=== PATIENT | male | born 1945 | race Caucasian/White ===

== ENCOUNTER 2021-02-24 23:16 | Inpatient (IN) ==
[2021-02-25] MEDS ORDERED: DEXTROSE 50% 25 GM/50 ML SYRINGE IV PRN (01:37)
[2021-02-25] MEDS ORDERED: GLUCAGON 1 MG VIAL IM PRN (01:37)
[2021-02-25] MEDS ORDERED: MAGNESIUM SULF RIDER 4 GM/100 ML PREMIX IV PRN (01:42)
[2021-02-25] MEDS ORDERED: MAGNESIUM SULF RIDER 2 GM/50 ML PREMIX IV PRN (01:42)
[2021-02-25] MEDS ORDERED: ACETAMINOPHEN 325 MG TABLET PO PRN (01:43)
[2021-02-25] MEDS ORDERED: MORPHINE 2 MG/1 ML SYRINGE IV PRN (01:43)
[2021-02-25] MEDS ORDERED: hydrALAZINE 20 MG/1 ML VIAL IV PRN (01:43)
[2021-02-25] MEDS ORDERED: ONDANSETRON 4 MG/2 ML VIAL IV PRN (01:43)
[2021-02-25] MEDS ORDERED: POTASSIUM CHLORIDE 20 MEQ TABLET PO PRN (01:47)
[2021-02-25] MEDS ORDERED: POTASSIUM CHLORIDE RIDER 10 MEQ/100 ML PREMIX IV PRN (01:47)
[2021-02-25 02:17] LABS: Basophils % 0.3 % (0.0-0.8); Hematocrit 43.9 VOL% (42.0-52.0); Hemoglobin 14.4 GM/DL (14.0-18.0); Immature Granulocytes % 0.6 %; Immature Granulocytes Absolute 0.05 #; Lymphocytes # 1.2 10*3/uL (1.4-4.0); Lymphocytes % 13.5 % (21.2-54.2); Mean Corpuscular HGB Conc 32.8 GM/DL (32-36); Mean Corpuscular Volume 92.8 FL (87-102); Monocytes % 5.5 % (1.7-12.7); Neutrophils % 80.1 % (38.7-73.9); Platelet Count 158 T/CUMM (130-400); Red Blood Count 4.73 MC/CUMM (3.8-5.5); Red Cell Distribution Width 14.6 % (9.3-17.3); White Blood Count 8.9 T/CUMM (4-12)
[2021-02-25 02:41] LABS: Risk Ratio 3.92; VLDL Cholesterol 19.4 MG/DL
[2021-02-25 02:45] LABS: Alanine Aminotransferase 13 U/L (16-61); Albumin 3.3 G/DL (3.4-5.0); Alkaline Phosphatase 106 U/L (45-117); Aspartate Amino Transferase 22 U/L (0-37); Bilirubin,Total < 0.39 MG/DL (0.20-1.00); Blood Urea Nitrogen 27 MG/DL (7-18); Calcium 8.9 MG/DL (8.5-10.1); Carbon Dioxide 30 MMOL/L (21-32); Estimated Glom Filtration Rate 43 ML/MIN; Glucose 191 MG/DL (74-106); Osmolality,Calculated 282.8 MOS/KG (273-304); Potassium 4.2 MMOL/L (3.5-5.1); Sodium 137 MMOL/L (136-145); Thyroid Stimulating Hormone 0.659 uIU/ml (0.358-3.74); Total Protein 6.4 G/DL (6.4-8.2)
[2021-02-25] MEDS ORDERED: ASPIRIN 325 MG TABLET PO ONE ×2 (02:51→03:30)
[2021-02-25] MEDS ORDERED: ASPIRIN CHEW 81 MG TABLET PO ONE (03:22)
[2021-02-25] MEDS ORDERED: ASPIRIN 325 MG TABLET ONE (03:30)
[2021-02-25] MEDS: ENOXAPARIN 60 MG/0.6 ML SYRINGE SUBCUT SCH ×2 (03:44→16:39)
[2021-02-25] MEDS ORDERED: FUROSEMIDE 40 MG/4 ML VIAL IV SCH (03:51)
[2021-02-25 05:36] LABS: PT Patient Result 11.6 SECS (10.5-12.0); Partial Thromboplastin Time 32.1 SECS (23.8-32.1)
[2021-02-25] MEDS: INSULIN REGULAR 100 UNIT/ML SUBCUT SCH ×4 (08:49→22:27)
[2021-02-25] MEDS ORDERED: NITROGLYCERIN SL 0.4 MG TABLET SL PRN (09:22)
[2021-02-25] MEDS ORDERED: GABAPENTIN 100 MG CAPSULE PO PRN (09:22)
[2021-02-25] MEDS: DOCUSATE SODIUM 100 MG CAPSULE PO SCH ×2 (09:32→22:21)
[2021-02-25] MEDS: PANTOPRAZOLE 40 MG TABLET PO SCH (09:32)
[2021-02-25] MEDS: FUROSEMIDE 40 MG/4 ML VIAL IV SCH (09:34)
[2021-02-25] MEDS: carvediloL 12.5 MG TABLET PO SCH ×2 (09:38→22:21)
[2021-02-25] MEDS: ISOSORBIDE MONONITRATE 20 MG TABLET PO SCH ×2 (09:38→22:21)
[2021-02-25] MEDS: ROSUVASTATIN 20 MG TABLET PO SCH (22:21)
[2021-02-25] MEDS: traMADol 50 MG TABLET PO SCH (22:21)
[2021-02-25] MEDS: traZODone 50 MG TABLET PO SCH (22:26)
[2021-02-26 05:30] LABS: Basophils # 0.1 10*3/uL (0.0-0.2); Basophils % 1.1 % (0.0-0.8); Eosinophils # 0.3 10*3/uL (0.0-0.87); Eosinophils % 2.9 % (0.00-10.9); Hematocrit 45.8 VOL% (42.0-52.0); Hemoglobin 14.9 GM/DL (14.0-18.0); Immature Granulocytes % 0.4 %; Immature Granulocytes Absolute 0.04 #; Lymphocytes # 2.4 10*3/uL (1.4-4.0); Lymphocytes % 26.1 % (21.2-54.2); Mean Corpuscular HGB Conc 32.5 GM/DL (32-36); Mean Platelet Volume 11.1 FL (9.6-12.0); Monocytes % 8.2 % (1.7-12.7); Neutrophils % 61.3 % (38.7-73.9); Platelet Count 166 T/CUMM (130-400); Red Blood Count 4.87 MC/CUMM (3.8-5.5); Red Cell Distribution Width 14.6 % (9.3-17.3)
[2021-02-26 05:41] LABS: Calcium 9.1 MG/DL (8.5-10.1); Osmolality,Calculated 280.7 MOS/KG (273-304); Potassium 4.1 MMOL/L (3.5-5.1)
[2021-02-26] MEDS: ENOXAPARIN 60 MG/0.6 ML SYRINGE SUBCUT SCH ×2 (06:23→16:04)
[2021-02-26] MEDS: INSULIN REGULAR 100 UNIT/ML SUBCUT SCH ×4 (07:59→21:44)
[2021-02-26] MEDS: FUROSEMIDE 40 MG/4 ML VIAL IV SCH (09:21)
[2021-02-26] MEDS: ISOSORBIDE MONONITRATE 20 MG TABLET PO SCH ×2 (09:21→21:39)
[2021-02-26] MEDS: PANTOPRAZOLE 40 MG TABLET PO SCH (09:21)
[2021-02-26] MEDS: DOCUSATE SODIUM 100 MG CAPSULE PO SCH ×2 (09:21→21:44)
[2021-02-26] MEDS: ASPIRIN EC 325 MG TABLET PO SCH (09:21)
[2021-02-26] MEDS: carvediloL 12.5 MG TABLET PO SCH ×2 (09:21→21:39)
[2021-02-26] MEDS: traMADol 50 MG TABLET PO SCH ×2 (09:21→21:39)
[2021-02-26] MEDS ORDERED: HEPARIN/NACL 0.9% 2 UNITS/ML 2,000 UNIT/1,000 ML BAG IV ONE (11:08)
[2021-02-26] MEDS ORDERED: LIDOCAINE 1% 20 ML VIAL ONE (11:08)
[2021-02-26] MEDS ORDERED: DIAZEPAM 5 MG TABLET PO ONE (13:00)
[2021-02-26] MEDS ORDERED: diphenhydrAMINE CAP 25 MG CAPSULE PO ONE (13:00)
[2021-02-26] MEDS ORDERED: MIDAZOLAM 2 MG/2 ML VIAL ONE (13:54)
[2021-02-26] MEDS ORDERED: HYDROmorphone 2 MG/1 ML VIAL ONE (13:55)
[2021-02-26] MEDS ORDERED: diphenhydrAMINE 50 MG/1 ML VIAL ONE (14:14)
[2021-02-26] MEDS ORDERED: NALOXONE 0.4 MG/ML VIAL ONE (14:36)
[2021-02-26] MEDS: traZODone 50 MG TABLET PO SCH (21:38)
[2021-02-26] MEDS: ROSUVASTATIN 20 MG TABLET PO SCH (21:39)
[2021-02-27] MEDS: ENOXAPARIN 60 MG/0.6 ML SYRINGE SUBCUT SCH (03:45)
[2021-02-27 05:42] LABS: Basophils # 0.1 10*3/uL (0.0-0.2); Basophils % 0.6 % (0.0-0.8); Eosinophils % 0.2 % (0.00-10.9); Hematocrit 48.7 VOL% (42.0-52.0); Hemoglobin 16.2 GM/DL (14.0-18.0); Immature Granulocytes % 0.6 %; Immature Granulocytes Absolute 0.08 #; Mean Corpuscular HGB Conc 33.3 GM/DL (32-36); Mean Corpuscular Volume 93.3 FL (87-102); Mean Platelet Volume 11.4 FL (9.6-12.0); Monocytes % 8.4 % (1.7-12.7); Neutrophils % 83.2 % (38.7-73.9); Platelet Count 185 T/CUMM (130-400); Red Blood Count 5.22 MC/CUMM (3.8-5.5); Red Cell Distribution Width 14.5 % (9.3-17.3); White Blood Count 14.4 T/CUMM (4-12)
[2021-02-27 05:54] LABS: Calcium 8.8 MG/DL (8.5-10.1); Calcium 9.1 MG/DL (8.5-10.1); Osmolality,Calculated 279.2 MOS/KG (273-304); Osmolality,Calculated 281.1 MOS/KG (273-304); Potassium 4.1 MMOL/L (3.5-5.1)
[2021-02-27] MEDS: ISOSORBIDE MONONITRATE 20 MG TABLET PO SCH (09:47)
[2021-02-27] MEDS: ASPIRIN EC 325 MG TABLET PO SCH (09:47)
[2021-02-27] MEDS: carvediloL 12.5 MG TABLET PO SCH (09:47)
[2021-02-27] MEDS: PANTOPRAZOLE 40 MG TABLET PO SCH (09:48)
[2021-02-27] MEDS: DOCUSATE SODIUM 100 MG CAPSULE PO SCH (09:48)
[2021-02-27] MEDS: traMADol 50 MG TABLET PO SCH (09:48)
[2021-02-27] MEDS: FUROSEMIDE 40 MG/4 ML VIAL IV SCH (09:48)
[2021-02-27] MEDS: INSULIN REGULAR 100 UNIT/ML SUBCUT SCH ×2 (10:45→11:25)
[2021-02-27 12:05] VITALS: BP 135/85
== END 2021-02-27 15:41 | disposition home health service (06) | DRG 281 ==
LOC: N.TELEN → SUATTDRO 02-25 00:34
PROVIDERS: ADMIT Internal Medicine; ATTEND Internal Medicine

== ENCOUNTER 2021-03-06 06:29 | Inpatient (IN) ==
[2021-03-06] MEDS ORDERED: ACETAMINOPHEN 325 MG TABLET PO PRN (09:11)
[2021-03-06] MEDS ORDERED: DEXTROSE 50% 25 GM/50 ML SYRINGE IV PRN (09:11)
[2021-03-06] MEDS ORDERED: ONDANSETRON 4 MG/2 ML VIAL IV PRN (09:11)
[2021-03-06] MEDS ORDERED: GLUCAGON 1 MG VIAL IM PRN (09:11)
[2021-03-06] MEDS: PANTOPRAZOLE 40 MG TABLET PO SCH (09:55)
[2021-03-06] MEDS ORDERED: NITROGLYCERIN SL 0.4 MG TABLET SL PRN (10:03)
[2021-03-06 10:04] LABS: Basophils % 0.2 % (0.0-0.8); Eosinophils % 0.1 % (0.00-10.9); Hematocrit 44.8 VOL% (42.0-52.0); Hemoglobin 14.6 GM/DL (14.0-18.0); Immature Granulocytes % 1.1 %; Immature Granulocytes Absolute 0.21 #; Lymphocytes # 1.2 10*3/uL (1.4-4.0); Lymphocytes % 6.4 % (21.2-54.2); Mean Corpuscular HGB Conc 32.6 GM/DL (32-36); Mean Corpuscular Volume 93.7 FL (87-102); Monocytes % 7.4 % (1.7-12.7); Neutrophils % 84.8 % (38.7-73.9); Platelet Count 262 T/CUMM (130-400); Red Blood Count 4.78 MC/CUMM (3.8-5.5); Red Cell Distribution Width 14.8 % (9.3-17.3); White Blood Count 19.2 T/CUMM (4-12)
[2021-03-06 10:31] LABS: Bilirubin,Total 0.6 MG/DL (0.20-1.00); Calcium 8.9 MG/DL (8.5-10.1); Osmolality,Calculated 288.7 MOS/KG (273-304); Potassium 4.5 MMOL/L (3.5-5.1); Thyroid Stimulating Hormone 2.17 uIU/ml (0.358-3.74); Total Protein 6.8 G/DL (6.4-8.2)
[2021-03-06] MEDS: ENOXAPARIN 60 MG/0.6 ML SYRINGE SUBCUT SCH (14:11)
[2021-03-06] MEDS ORDERED: LEVALBUTEROL 1.25 MG/3 ML NEB RESP TX ONE (15:20)
[2021-03-06] MEDS: carvediloL 12.5 MG TABLET PO SCH (21:09)
[2021-03-06] MEDS: ISOSORBIDE MONONITRATE 20 MG TABLET PO SCH (21:09)
[2021-03-06] MEDS: ASCORBIC ACID 500 MG TABLET PO SCH (21:09)
[2021-03-06] MEDS: ROSUVASTATIN 20 MG TABLET PO SCH (21:09)
[2021-03-07] MEDS: ENOXAPARIN 60 MG/0.6 ML SYRINGE SUBCUT SCH (01:41)
[2021-03-07 05:31] LABS: Risk Ratio 4.29; VLDL Cholesterol 18.2 MG/DL
[2021-03-07 09:07] LABS: Basophils % 0.1 % (0.0-0.8); Hematocrit 46.7 VOL% (42.0-52.0); Hemoglobin 15.4 GM/DL (14.0-18.0); Immature Granulocytes % 1.2 %; Immature Granulocytes Absolute 0.26 #; Lymphocytes % 4.5 % (21.2-54.2); Mean Corpuscular Volume 94.3 FL (87-102); Mean Platelet Volume 10.9 FL (9.6-12.0); Monocytes % 7.3 % (1.7-12.7); Neutrophils % 86.9 % (38.7-73.9); Platelet Count 346 T/CUMM (130-400); Red Blood Count 4.95 MC/CUMM (3.8-5.5); Red Cell Distribution Width 14.7 % (9.3-17.3); White Blood Count 21.8 T/CUMM (4-12)
[2021-03-07 09:20] LABS: Calcium 9.1 MG/DL (8.5-10.1); Osmolality,Calculated 280.2 MOS/KG (273-304); Potassium 4.5 MMOL/L (3.5-5.1)
[2021-03-07] MEDS: carvediloL 12.5 MG TABLET PO SCH ×2 (09:45→21:03)
[2021-03-07] MEDS: ASCORBIC ACID 500 MG TABLET PO SCH ×2 (09:45→21:03)
[2021-03-07] MEDS: ASPIRIN EC 325 MG TABLET PO SCH (09:45)
[2021-03-07] MEDS: ISOSORBIDE MONONITRATE 20 MG TABLET PO SCH ×2 (09:46→21:03)
[2021-03-07] MEDS: PANTOPRAZOLE 40 MG TABLET PO SCH (09:46)
[2021-03-07 09:55] LABS: Band Neutrophils 1 % (0-10); Hypochromia Slight; Lymphocytes 2 % (20-55); Microcytosis 1+; Segmented Neutrophils 94 % (50-85); Total Cells Counted 100
[2021-03-07] MEDS ORDERED: GABAPENTIN 100 MG CAPSULE PO PRN (11:26)
[2021-03-07] MEDS: FUROSEMIDE 40 MG TABLET PO SCH (14:25)
[2021-03-07] MEDS: HEPARIN DRIP 25,000 UNITS/500 ML PREMIX IV SCH (16:13)
[2021-03-07] MEDS: traZODone 50 MG TABLET PO SCH (21:03)
[2021-03-07] MEDS: ROSUVASTATIN 20 MG TABLET PO SCH (21:03)
[2021-03-07] MEDS: traMADol 50 MG TABLET PO SCH (21:04)
[2021-03-07] MEDS ORDERED: guaiFENesin 200 MG/10 ML UDCUP PO PRN (22:08)
[2021-03-08 04:30] LABS: Basophils # 0.1 10*3/uL (0.0-0.2); Basophils % 0.3 % (0.0-0.8); Eosinophils # 0.1 10*3/uL (0.0-0.87); Eosinophils % 0.8 % (0.00-10.9); Hematocrit 40.2 VOL% (42.0-52.0); Hemoglobin 13.3 GM/DL (14.0-18.0); Immature Granulocytes % 1.1 %; Immature Granulocytes Absolute 0.18 #; Lymphocytes # 1.4 10*3/uL (1.4-4.0); Lymphocytes % 8.9 % (21.2-54.2); Mean Corpuscular HGB Conc 33.1 GM/DL (32-36); Mean Corpuscular Volume 93.5 FL (87-102); Mean Platelet Volume 11.7 FL (9.6-12.0); Monocytes % 9.2 % (1.7-12.7); Neutrophils % 79.7 % (38.7-73.9); Platelet Count 266 T/CUMM (130-400); Red Cell Distribution Width 14.6 % (9.3-17.3); White Blood Count 15.7 T/CUMM (4-12)
[2021-03-08 05:01] LABS: Calcium 8.4 MG/DL (8.5-10.1); Osmolality,Calculated 278.2 MOS/KG (273-304); Potassium 4.2 MMOL/L (3.5-5.1)
[2021-03-08] MEDS: ASPIRIN EC 325 MG TABLET PO SCH (08:37)
[2021-03-08] MEDS: PANTOPRAZOLE 40 MG TABLET PO SCH (08:38)
[2021-03-08] MEDS: lisinopriL 5 MG TABLET PO SCH (08:38)
[2021-03-08] MEDS: ISOSORBIDE MONONITRATE 20 MG TABLET PO SCH ×2 (08:38→20:58)
[2021-03-08] MEDS: ASCORBIC ACID 500 MG TABLET PO SCH ×2 (08:38→20:58)
[2021-03-08] MEDS: carvediloL 12.5 MG TABLET PO SCH ×2 (08:38→20:59)
[2021-03-08] MEDS: traMADol 50 MG TABLET PO SCH ×2 (08:38→20:58)
[2021-03-08] MEDS: FUROSEMIDE 40 MG TABLET PO SCH (08:38)
[2021-03-08] MEDS ORDERED: MORPHINE 2 MG/1 ML SYRINGE IV PRN ×3 (09:15→09:47)
[2021-03-08] MEDS: INSULIN LISPRO 100 UNIT/ML SUBCUT SCH ×2 (13:15→17:22)
[2021-03-08] MEDS: HEPARIN DRIP 25,000 UNITS/500 ML PREMIX IV SCH (13:55)
[2021-03-08 14:08] LABS: Bilirubin,Urine Negative (Negative); Blood, Urine Negative (Negative); Glucose,Urine (UA) Negative (Negative); Hyaline Casts,Urine 9 /LPF (0-3); Ketones,Urine Negative (Negative); Nitrite,Urine Negative (Negative); Protein,Urine Negative; RBC,Urine <1 /HPF (0-4); Squamous Epithelial Cell,Urine Occasional /HPF (0-10); Urine Appearance CLEAR (Clear); Urine Color Yellow (Yellow); Urine Specific Gravity 1.018 (1.001-1.035); Urine Urobilinogen < 2.0 EU/DL (<2.0)
[2021-03-08 19:10] LABS: PT Patient Result 11.7 SECS (10.5-12.0)
[2021-03-08 19:11] LABS: Partial Thromboplastin Time 52.5 SECS (23.8-32.1)
[2021-03-08] MEDS: ROSUVASTATIN 20 MG TABLET PO SCH (20:58)
[2021-03-08] MEDS: traZODone 50 MG TABLET PO SCH (20:59)
[2021-03-09] MEDS: INSULIN LISPRO 100 UNIT/ML SUBCUT SCH ×4 (00:50→23:04)
[2021-03-09] MEDS: ALBUTEROL/IPRATROPIUM 3 ML NEB RESP TX SCH ×5 (01:45→19:50)
[2021-03-09 04:00] LABS: Basophils # 0.1 10*3/uL (0.0-0.2); Basophils % 0.4 % (0.0-0.8); Eosinophils # 0.2 10*3/uL (0.0-0.87); Eosinophils % 1.6 % (0.00-10.9); Hematocrit 36.6 VOL% (42.0-52.0); Hemoglobin 11.9 GM/DL (14.0-18.0); Immature Granulocytes Absolute 0.14 #; Lymphocytes # 1.6 10*3/uL (1.4-4.0); Lymphocytes % 11.4 % (21.2-54.2); Mean Corpuscular HGB Conc 32.5 GM/DL (32-36); Mean Corpuscular Volume 94.3 FL (87-102); Monocytes % 8.4 % (1.7-12.7); Neutrophils % 77.2 % (38.7-73.9); Platelet Count 269 T/CUMM (130-400); Red Blood Count 3.88 MC/CUMM (3.8-5.5); Red Cell Distribution Width 14.9 % (9.3-17.3); White Blood Count 14.1 T/CUMM (4-12)
[2021-03-09 04:26] LABS: Calcium 8.4 MG/DL (8.5-10.1); Potassium 3.8 MMOL/L (3.5-5.1)
[2021-03-09 04:47] LABS: Albumin 2.4 G/DL (3.4-5.0); Bilirubin,Direct 0.1 MG/DL (0.0-0.20); Bilirubin,Indirect 0.3 MG/DL (0.0-1.0); Bilirubin,Total 0.4 MG/DL (0.20-1.00); Total Protein 5.5 G/DL (6.4-8.2)
[2021-03-09 05:22] LABS: Hepatitis B Core IgM Quant 0.13 Index; Hepatitis B Surface Ag Quant < 0.10 Index; Hepatitis B Surface Ag Result Non-Reactive (NonReactive); Hepatitis C Virus Ab Quant < 0.02 Index; Hepatitis C Virus Ab Result Non-Reactive (NonReactive)
[2021-03-09] MEDS ORDERED: PHENYLEPHRINE 10 MG/1 ML VIAL IV ONE (08:47)
[2021-03-09] MEDS ORDERED: fentaNYL 100 MCG/2 ML VIAL ONE (09:27)
[2021-03-09] MEDS ORDERED: HEPARIN 5,000 UNIT/1 ML VIAL ONE (09:31)
[2021-03-09] MEDS ORDERED: ePHEDrine 50 MG/ML VIAL ONE (09:40)
[2021-03-09] MEDS ORDERED: ceFAZolin 1,000 MG VIAL ONE (09:52)
[2021-03-09] MEDS ORDERED: SODIUM CHLORIDE 0.9% 1,000 ML IV SCH (10:00)
[2021-03-09] MEDS ORDERED: ROCURONIUM 50 MG/5 ML VIAL IV ONE (10:49)
[2021-03-09] MEDS ORDERED: HEPARIN 10,000 UNIT/10 ML VIAL ONE (10:49)
[2021-03-09] MEDS ORDERED: ETOMIDATE 40 MG/20 ML VIAL IV ONE (10:49)
[2021-03-09] MEDS ORDERED: PROTAMINE SULFATE 50 MG/5 ML VIAL IV ONE (10:49)
[2021-03-09] MEDS ORDERED: ONDANSETRON 4 MG/2 ML VIAL ONE (10:49)
[2021-03-09] MEDS ORDERED: SEVOFLURANE 1 UNIT/15 MINUTE INH ONE (10:49)
[2021-03-09] MEDS ORDERED: LIDOCAINE 2% 5 ML VIAL ONE (10:49)
[2021-03-09] MEDS ORDERED: GLUCAGON 1 MG VIAL IM PRN (11:22)
[2021-03-09] MEDS ORDERED: DEXTROSE 50% 25 GM/50 ML SYRINGE IV PRN (11:22)
[2021-03-09] MEDS ORDERED: BISACODYL 5 MG TABLET PO PRN (11:22)
[2021-03-09] MEDS: ASPIRIN EC 325 MG TABLET PO SCH (13:23)
[2021-03-09] MEDS: ASCORBIC ACID 500 MG TABLET PO SCH ×2 (13:23→20:52)
[2021-03-09] MEDS: lisinopriL 5 MG TABLET PO SCH (13:23)
[2021-03-09] MEDS: PANTOPRAZOLE 40 MG TABLET PO SCH (13:23)
[2021-03-09] MEDS: traMADol 50 MG TABLET PO SCH ×2 (13:24→20:52)
[2021-03-09] MEDS: carvediloL 12.5 MG TABLET PO SCH ×2 (13:24→20:56)
[2021-03-09] MEDS: FUROSEMIDE 40 MG TABLET PO SCH (13:24)
[2021-03-09] MEDS: ISOSORBIDE MONONITRATE 20 MG TABLET PO SCH ×2 (13:25→20:53)
[2021-03-09] MEDS: ceFAZolin 3,000 MG in SYRINGE 1 EACH IV SCH (18:10)
[2021-03-09] MEDS: traZODone 50 MG TABLET PO SCH (20:51)
[2021-03-09] MEDS: ROSUVASTATIN 20 MG TABLET PO SCH (20:51)
[2021-03-10] MEDS: ALBUTEROL/IPRATROPIUM 3 ML NEB RESP TX SCH ×4 (00:20→19:27)
[2021-03-10] MEDS: INSULIN LISPRO 100 UNIT/ML SUBCUT SCH ×4 (00:47→19:27)
[2021-03-10] MEDS: ceFAZolin 3,000 MG in SYRINGE 1 EACH IV SCH (01:36)
[2021-03-10 06:09] LABS: Basophils # 0.1 10*3/uL (0.0-0.2); Basophils % 0.5 % (0.0-0.8); Eosinophils # 0.2 10*3/uL (0.0-0.87); Eosinophils % 1.3 % (0.00-10.9); Hematocrit 35.9 VOL% (42.0-52.0); Hemoglobin 11.3 GM/DL (14.0-18.0); Immature Granulocytes % 1.2 %; Immature Granulocytes Absolute 0.17 #; Lymphocytes # 1.3 10*3/uL (1.4-4.0); Lymphocytes % 8.9 % (21.2-54.2); Mean Corpuscular HGB Conc 31.5 GM/DL (32-36); Mean Corpuscular Volume 97.8 FL (87-102); Mean Platelet Volume 11.1 FL (9.6-12.0); Monocytes % 8.1 % (1.7-12.7); Platelet Count 265 T/CUMM (130-400); Red Blood Count 3.67 MC/CUMM (3.8-5.5); Red Cell Distribution Width 14.9 % (9.3-17.3); White Blood Count 14.5 T/CUMM (4-12)
[2021-03-10 06:30] LABS: Calcium 8.3 MG/DL (8.5-10.1); Osmolality,Calculated 278.8 MOS/KG (273-304)
[2021-03-10] MEDS ORDERED: MIDAZOLAM 2 MG/2 ML VIAL ONE (07:41)
[2021-03-10] MEDS ORDERED: fentaNYL 100 MCG/2 ML VIAL ONE (07:42)
[2021-03-10] MEDS ORDERED: ePHEDrine 50 MG/ML VIAL ONE (07:42)
[2021-03-10] MEDS ORDERED: KETAMINE 500 MG/10 ML VIAL ONE (07:44)
[2021-03-10] MEDS ORDERED: LACTATED RINGERS 1,000 ML IV SCH (08:00)
[2021-03-10] MEDS ORDERED: ETOMIDATE 40 MG/20 ML VIAL IV ONE (08:11)
[2021-03-10] MEDS ORDERED: EPINEPHrine 1 MG/ML VIAL ONE (08:11)
[2021-03-10] MEDS ORDERED: LIDOCAINE 2% 5 ML VIAL ONE (08:11)
[2021-03-10] MEDS ORDERED: ROCURONIUM 50 MG/5 ML VIAL IV ONE (08:11)
[2021-03-10] MEDS ORDERED: SODIUM CHLORIDE 0.9% 1,000 ML IV ONE (09:07)
[2021-03-10] MEDS ORDERED: DESFLURANE 1 UNIT/15 MINUTE INH ONE (09:07)
[2021-03-10] MEDS ORDERED: SODIUM CHLORIDE 0.9% 100 ML IV ONE (09:07)
[2021-03-10] MEDS ORDERED: ONDANSETRON 4 MG/2 ML VIAL ONE (09:28)
[2021-03-10] MEDS ORDERED: DEXAMETHASONE 4 MG/1 ML VIAL ONE (09:28)
[2021-03-10] MEDS ORDERED: GLYCOPYRROLATE 0.4 MG/2 ML VIAL ONE (09:28)
[2021-03-10] MEDS ORDERED: NEOSTIGMINE 10 MG/10 ML VIAL ONE (09:28)
[2021-03-10] MEDS ORDERED: LACTATED RINGERS 1,000 ML IV ONE (09:31)
[2021-03-10] MEDS: ISOSORBIDE MONONITRATE 20 MG TABLET PO SCH ×2 (12:43→20:48)
[2021-03-10] MEDS: carvediloL 12.5 MG TABLET PO SCH ×2 (12:43→20:48)
[2021-03-10] MEDS: PANTOPRAZOLE 40 MG TABLET PO SCH (12:43)
[2021-03-10] MEDS: lisinopriL 5 MG TABLET PO SCH (12:44)
[2021-03-10] MEDS: ASPIRIN EC 325 MG TABLET PO SCH (12:44)
[2021-03-10] MEDS: FUROSEMIDE 40 MG TABLET PO SCH (12:44)
[2021-03-10] MEDS: HYDROmorphone 2 MG/1 ML VIAL IV PRN ×4 (12:45→23:34)
[2021-03-10] MEDS: ASCORBIC ACID 500 MG TABLET PO SCH ×2 (12:46→20:47)
[2021-03-10] MEDS: GABAPENTIN 100 MG CAPSULE PO SCH ×2 (14:24→20:47)
[2021-03-10] MEDS: traMADol 50 MG TABLET PO SCH (15:39)
[2021-03-10] MEDS ORDERED: NALOXONE 0.4 MG/ML VIAL ONE (17:30)
[2021-03-10] MEDS ORDERED: NALOXONE 0.4 MG/ML VIAL IV STA (17:33)
[2021-03-10] MEDS: ROSUVASTATIN 20 MG TABLET PO SCH (20:47)
[2021-03-10] MEDS: traZODone 50 MG TABLET PO SCH (20:48)
[2021-03-11] MEDS: INSULIN LISPRO 100 UNIT/ML SUBCUT SCH ×4 (00:29→18:54)
[2021-03-11] MEDS: ALBUTEROL/IPRATROPIUM 3 ML NEB RESP TX SCH ×4 (04:11→19:29)
[2021-03-11 04:30] LABS: Basophils % 0.1 % (0.0-0.8); Hematocrit 36.3 VOL% (42.0-52.0); Hemoglobin 11.7 GM/DL (14.0-18.0); Immature Granulocytes % 1.3 %; Immature Granulocytes Absolute 0.23 #; Lymphocytes # 0.7 10*3/uL (1.4-4.0); Lymphocytes % 4.1 % (21.2-54.2); Mean Corpuscular HGB Conc 32.2 GM/DL (32-36); Mean Corpuscular Volume 95.8 FL (87-102); Mean Platelet Volume 10.5 FL (9.6-12.0); Monocytes % 6.2 % (1.7-12.7); Neutrophils % 88.3 % (38.7-73.9); Platelet Count 258 T/CUMM (130-400); Red Blood Count 3.79 MC/CUMM (3.8-5.5); Red Cell Distribution Width 14.7 % (9.3-17.3)
[2021-03-11 04:58] LABS: Calcium 8.6 MG/DL (8.5-10.1); Lymphocytes 2 % (20-55); Platelet Estimate Adequate; Potassium 4.1 MMOL/L (3.5-5.1); Segmented Neutrophils 94 % (50-85); Total Cells Counted 100
[2021-03-11] MEDS: HYDROmorphone 2 MG/1 ML VIAL IV PRN ×2 (05:39→21:02)
[2021-03-11] MEDS ORDERED: ALBUTEROL 2.5 MG/3 ML NEB RESP TX PRN (08:43)
[2021-03-11] MEDS: lisinopriL 5 MG TABLET PO SCH (09:48)
[2021-03-11] MEDS: ISOSORBIDE MONONITRATE 20 MG TABLET PO SCH ×2 (09:48→21:02)
[2021-03-11] MEDS: GABAPENTIN 100 MG CAPSULE PO SCH ×3 (09:49→21:01)
[2021-03-11] MEDS: ASPIRIN EC 325 MG TABLET PO SCH (09:49)
[2021-03-11] MEDS: ASCORBIC ACID 500 MG TABLET PO SCH ×2 (09:49→21:01)
[2021-03-11] MEDS: PANTOPRAZOLE 40 MG TABLET PO SCH (09:49)
[2021-03-11] MEDS: FUROSEMIDE 40 MG TABLET PO SCH (09:50)
[2021-03-11] MEDS: carvediloL 12.5 MG TABLET PO SCH ×2 (09:50→21:02)
[2021-03-11] MEDS: PIPERACILLIN/TAZOBACTAM 3,375 MG in SODIUM CHLORIDE 0.9% 100 ML IV SCH ×2 (09:51→18:03)
[2021-03-11] MEDS ORDERED: FUROSEMIDE 20 MG/2 ML VIAL IV ONE (12:41)
[2021-03-11] MEDS: ROSUVASTATIN 20 MG TABLET PO SCH (21:01)
[2021-03-11] MEDS: traZODone 50 MG TABLET PO SCH (21:06)
[2021-03-12] MEDS: INSULIN LISPRO 100 UNIT/ML SUBCUT SCH ×4 (00:24→18:16)
[2021-03-12] MEDS: PIPERACILLIN/TAZOBACTAM 3,375 MG in SODIUM CHLORIDE 0.9% 100 ML IV SCH ×3 (00:24→16:53)
[2021-03-12 05:09] LABS: Basophils # 0.1 10*3/uL (0.0-0.2); Basophils % 0.3 % (0.0-0.8); Eosinophils # 0.2 10*3/uL (0.0-0.87); Hematocrit 39.2 VOL% (42.0-52.0); Hemoglobin 12.7 GM/DL (14.0-18.0); Immature Granulocytes % 1.2 %; Immature Granulocytes Absolute 0.23 #; Lymphocytes # 1.2 10*3/uL (1.4-4.0); Lymphocytes % 6.3 % (21.2-54.2); Mean Corpuscular HGB Conc 32.4 GM/DL (32-36); Mean Corpuscular Volume 95.8 FL (87-102); Mean Platelet Volume 10.5 FL (9.6-12.0); Monocytes % 7.8 % (1.7-12.7); Neutrophils % 83.4 % (38.7-73.9); Platelet Count 259 T/CUMM (130-400); Red Blood Count 4.09 MC/CUMM (3.8-5.5); Red Cell Distribution Width 14.8 % (9.3-17.3); White Blood Count 18.7 T/CUMM (4-12)
[2021-03-12 05:26] LABS: Calcium 8.8 MG/DL (8.5-10.1); Potassium 3.8 MMOL/L (3.5-5.1)
[2021-03-12] MEDS: ALBUTEROL/IPRATROPIUM 3 ML NEB RESP TX SCH ×3 (08:05→19:55)
[2021-03-12] MEDS: ISOSORBIDE MONONITRATE 20 MG TABLET PO SCH ×2 (08:41→21:08)
[2021-03-12] MEDS: ASPIRIN EC 325 MG TABLET PO SCH (08:41)
[2021-03-12] MEDS: ASCORBIC ACID 500 MG TABLET PO SCH ×2 (08:42→21:07)
[2021-03-12] MEDS: GABAPENTIN 100 MG CAPSULE PO SCH ×3 (08:42→21:07)
[2021-03-12] MEDS: PANTOPRAZOLE 40 MG TABLET PO SCH (08:42)
[2021-03-12] MEDS: FUROSEMIDE 40 MG TABLET PO SCH (08:42)
[2021-03-12] MEDS: carvediloL 12.5 MG TABLET PO SCH ×2 (08:42→21:07)
[2021-03-12] MEDS: lisinopriL 5 MG TABLET PO SCH (08:43)
[2021-03-12] MEDS ORDERED: BISACODYL 10 MG SUPP RECTAL ONE (11:13)
[2021-03-12] MEDS: traZODone 50 MG TABLET PO SCH (21:07)
[2021-03-12] MEDS: DOCUSATE SODIUM 100 MG CAPSULE PO SCH (21:07)
[2021-03-12] MEDS: ROSUVASTATIN 20 MG TABLET PO SCH (21:07)
[2021-03-13] MEDS: INSULIN LISPRO 100 UNIT/ML SUBCUT SCH ×5 (01:49→23:15)
[2021-03-13] MEDS: PIPERACILLIN/TAZOBACTAM 3,375 MG in SODIUM CHLORIDE 0.9% 100 ML IV SCH ×3 (02:02→17:10)
[2021-03-13 05:00] LABS: Basophils # 0.1 10*3/uL (0.0-0.2); Basophils % 0.5 % (0.0-0.8); Eosinophils # 0.2 10*3/uL (0.0-0.87); Hematocrit 44.4 VOL% (42.0-52.0); Hemoglobin 14.1 GM/DL (14.0-18.0); Immature Granulocytes % 1.5 %; Immature Granulocytes Absolute 0.26 #; Lymphocytes # 1.4 10*3/uL (1.4-4.0); Lymphocytes % 7.9 % (21.2-54.2); Mean Corpuscular HGB Conc 31.8 GM/DL (32-36); Mean Corpuscular Volume 96.1 FL (87-102); Mean Platelet Volume 10.3 FL (9.6-12.0); Monocytes % 6.9 % (1.7-12.7); Neutrophils % 82.2 % (38.7-73.9); Platelet Count 269 T/CUMM (130-400); Red Blood Count 4.62 MC/CUMM (3.8-5.5); Red Cell Distribution Width 14.6 % (9.3-17.3); White Blood Count 17.1 T/CUMM (4-12)
[2021-03-13 05:31] LABS: Calcium 8.7 MG/DL (8.5-10.1); Osmolality,Calculated 281.8 MOS/KG (273-304); Potassium 3.4 MMOL/L (3.5-5.1)
[2021-03-13] MEDS: HYDROmorphone 2 MG/1 ML VIAL IV PRN (05:39)
[2021-03-13] MEDS: ALBUTEROL/IPRATROPIUM 3 ML NEB RESP TX SCH ×4 (07:40→20:38)
[2021-03-13] MEDS ORDERED: POTASSIUM CHLORIDE 20 MEQ TABLET PO ONE (07:51)
[2021-03-13] MEDS: ASPIRIN EC 325 MG TABLET PO SCH (08:43)
[2021-03-13] MEDS: lisinopriL 5 MG TABLET PO SCH (08:43)
[2021-03-13] MEDS: GABAPENTIN 100 MG CAPSULE PO SCH ×3 (08:43→20:53)
[2021-03-13] MEDS: ASCORBIC ACID 500 MG TABLET PO SCH ×2 (08:43→20:52)
[2021-03-13] MEDS: PANTOPRAZOLE 40 MG TABLET PO SCH (08:44)
[2021-03-13] MEDS: ISOSORBIDE MONONITRATE 20 MG TABLET PO SCH ×2 (08:44→20:53)
[2021-03-13] MEDS: DOCUSATE SODIUM 100 MG CAPSULE PO SCH ×2 (08:44→20:53)
[2021-03-13] MEDS: POLYETHYLENE GLYCOL POWDER 17 GM PACK PO SCH (08:48)
[2021-03-13] MEDS: carvediloL 12.5 MG TABLET PO SCH ×2 (08:48→20:53)
[2021-03-13] MEDS: FUROSEMIDE 40 MG TABLET PO SCH (08:48)
[2021-03-13] MEDS: ROSUVASTATIN 20 MG TABLET PO SCH (20:53)
[2021-03-13] MEDS: traZODone 50 MG TABLET PO SCH (20:53)
[2021-03-14] MEDS: ALBUTEROL/IPRATROPIUM 3 ML NEB RESP TX SCH ×5 (00:16→20:07)
[2021-03-14] MEDS: PIPERACILLIN/TAZOBACTAM 3,375 MG in SODIUM CHLORIDE 0.9% 100 ML IV SCH ×3 (00:40→16:54)
[2021-03-14] MEDS: INSULIN LISPRO 100 UNIT/ML SUBCUT SCH ×4 (05:01→23:13)
[2021-03-14 05:19] LABS: Basophils # 0.1 10*3/uL (0.0-0.2); Basophils % 0.6 % (0.0-0.8); Eosinophils # 0.3 10*3/uL (0.0-0.87); Eosinophils % 1.4 % (0.00-10.9); Hematocrit 40.3 VOL% (42.0-52.0); Hemoglobin 12.8 GM/DL (14.0-18.0); Immature Granulocytes Absolute 0.19 #; Lymphocytes # 1.6 10*3/uL (1.4-4.0); Lymphocytes % 8.9 % (21.2-54.2); Mean Corpuscular HGB Conc 31.8 GM/DL (32-36); Mean Corpuscular Volume 96.9 FL (87-102); Mean Platelet Volume 10.4 FL (9.6-12.0); Monocytes % 6.6 % (1.7-12.7); Neutrophils % 81.5 % (38.7-73.9); Platelet Count 252 T/CUMM (130-400); Red Blood Count 4.16 MC/CUMM (3.8-5.5); Red Cell Distribution Width 14.4 % (9.3-17.3); White Blood Count 18.1 T/CUMM (4-12)
[2021-03-14 05:40] LABS: Calcium 8.2 MG/DL (8.5-10.1); Osmolality,Calculated 287.3 MOS/KG (273-304); Potassium 3.7 MMOL/L (3.5-5.1)
[2021-03-14] MEDS: DOCUSATE SODIUM 100 MG CAPSULE PO SCH ×2 (08:57→20:54)
[2021-03-14] MEDS: ASPIRIN EC 325 MG TABLET PO SCH (08:57)
[2021-03-14] MEDS: GABAPENTIN 100 MG CAPSULE PO SCH ×3 (08:57→20:53)
[2021-03-14] MEDS: ASCORBIC ACID 500 MG TABLET PO SCH ×2 (08:57→20:53)
[2021-03-14] MEDS: PANTOPRAZOLE 40 MG TABLET PO SCH (08:57)
[2021-03-14] MEDS: ISOSORBIDE MONONITRATE 20 MG TABLET PO SCH ×2 (08:57→20:54)
[2021-03-14] MEDS: carvediloL 12.5 MG TABLET PO SCH ×2 (09:55→20:54)
[2021-03-14] MEDS: FUROSEMIDE 40 MG TABLET PO SCH (09:56)
[2021-03-14] MEDS: POLYETHYLENE GLYCOL POWDER 17 GM PACK PO SCH (09:56)
[2021-03-14] MEDS: traZODone 50 MG TABLET PO SCH (20:53)
[2021-03-14] MEDS: ROSUVASTATIN 20 MG TABLET PO SCH (20:54)
[2021-03-15] MEDS: ALBUTEROL/IPRATROPIUM 3 ML NEB RESP TX SCH ×4 (00:19→20:27)
[2021-03-15] MEDS: PIPERACILLIN/TAZOBACTAM 3,375 MG in SODIUM CHLORIDE 0.9% 100 ML IV SCH ×3 (02:57→16:29)
[2021-03-15] MEDS: INSULIN LISPRO 100 UNIT/ML SUBCUT SCH ×3 (05:06→17:38)
[2021-03-15 05:25] LABS: Basophils # 0.1 10*3/uL (0.0-0.2); Basophils % 0.5 % (0.0-0.8); Eosinophils # 0.4 10*3/uL (0.0-0.87); Eosinophils % 2.9 % (0.00-10.9); Hematocrit 37.6 VOL% (42.0-52.0); Hemoglobin 12.5 GM/DL (14.0-18.0); Immature Granulocytes % 1.2 %; Immature Granulocytes Absolute 0.18 #; Lymphocytes # 1.8 10*3/uL (1.4-4.0); Lymphocytes % 12.6 % (21.2-54.2); Mean Corpuscular HGB Conc 33.2 GM/DL (32-36); Mean Corpuscular Volume 95.2 FL (87-102); Mean Platelet Volume 10.6 FL (9.6-12.0); Monocytes % 6.9 % (1.7-12.7); Neutrophils % 75.9 % (38.7-73.9); Platelet Count 233 T/CUMM (130-400); Red Blood Count 3.95 MC/CUMM (3.8-5.5); Red Cell Distribution Width 14.4 % (9.3-17.3); White Blood Count 14.6 T/CUMM (4-12)
[2021-03-15 05:51] LABS: Calcium 7.9 MG/DL (8.5-10.1); Osmolality,Calculated 280.7 MOS/KG (273-304); Potassium 3.7 MMOL/L (3.5-5.1)
[2021-03-15] MEDS ORDERED: TUBERCULIN SKIN TEST 0.1 ML SYRINGE INTRADERM ONE (09:00)
[2021-03-15] MEDS: PANTOPRAZOLE 40 MG TABLET PO SCH (09:19)
[2021-03-15] MEDS: ASCORBIC ACID 500 MG TABLET PO SCH ×2 (09:19→21:27)
[2021-03-15] MEDS: DOCUSATE SODIUM 100 MG CAPSULE PO SCH ×2 (09:19→21:28)
[2021-03-15] MEDS: FUROSEMIDE 40 MG TABLET PO SCH (09:20)
[2021-03-15] MEDS: FLUCONAZOLE 100 MG TABLET PO SCH (09:20)
[2021-03-15] MEDS: ASPIRIN EC 325 MG TABLET PO SCH (09:20)
[2021-03-15] MEDS: ISOSORBIDE MONONITRATE 20 MG TABLET PO SCH ×2 (09:20→21:27)
[2021-03-15] MEDS: carvediloL 12.5 MG TABLET PO SCH ×2 (09:20→21:27)
[2021-03-15] MEDS: POLYETHYLENE GLYCOL POWDER 17 GM PACK PO SCH (09:21)
[2021-03-15] MEDS: GABAPENTIN 100 MG CAPSULE PO SCH ×3 (09:31→21:27)
[2021-03-15] MEDS: traZODone 50 MG TABLET PO SCH (21:27)
[2021-03-15] MEDS: ROSUVASTATIN 20 MG TABLET PO SCH (21:27)
[2021-03-16] MEDS: PIPERACILLIN/TAZOBACTAM 3,375 MG in SODIUM CHLORIDE 0.9% 100 ML IV SCH ×3 (00:44→18:02)
[2021-03-16] MEDS: ALBUTEROL/IPRATROPIUM 3 ML NEB RESP TX SCH ×4 (00:45→19:55)
[2021-03-16] MEDS: INSULIN LISPRO 100 UNIT/ML SUBCUT SCH ×3 (01:34→11:21)
[2021-03-16 06:23] LABS: Basophils # 0.1 10*3/uL (0.0-0.2); Basophils % 0.8 % (0.0-0.8); Eosinophils # 0.4 10*3/uL (0.0-0.87); Eosinophils % 3.4 % (0.00-10.9); Hematocrit 39.6 VOL% (42.0-52.0); Hemoglobin 12.9 GM/DL (14.0-18.0); Immature Granulocytes Absolute 0.13 #; Lymphocytes # 1.4 10*3/uL (1.4-4.0); Lymphocytes % 11.4 % (21.2-54.2); Mean Corpuscular HGB Conc 32.6 GM/DL (32-36); Mean Corpuscular Volume 96.4 FL (87-102); Mean Platelet Volume 10.3 FL (9.6-12.0); Monocytes % 6.6 % (1.7-12.7); Neutrophils % 76.8 % (38.7-73.9); Platelet Count 262 T/CUMM (130-400); Red Blood Count 4.11 MC/CUMM (3.8-5.5); Red Cell Distribution Width 14.2 % (9.3-17.3); White Blood Count 12.5 T/CUMM (4-12)
[2021-03-16 06:41] LABS: Calcium 8.6 MG/DL (8.5-10.1); Osmolality,Calculated 279.8 MOS/KG (273-304); Potassium 3.2 MMOL/L (3.5-5.1)
[2021-03-16] MEDS ORDERED: POTASSIUM CHLORIDE 20 MEQ TABLET PO ONE (08:02)
[2021-03-16] MEDS: lisinopriL 5 MG TABLET PO SCH (08:58)
[2021-03-16] MEDS: ISOSORBIDE MONONITRATE 20 MG TABLET PO SCH ×2 (09:32→21:30)
[2021-03-16] MEDS: carvediloL 12.5 MG TABLET PO SCH ×2 (09:33→21:31)
[2021-03-16] MEDS: FLUCONAZOLE 100 MG TABLET PO SCH (09:33)
[2021-03-16] MEDS: DOCUSATE SODIUM 100 MG CAPSULE PO SCH ×2 (09:33→21:30)
[2021-03-16] MEDS: APIXABAN 2.5 MG TABLET PO SCH ×2 (09:34→21:30)
[2021-03-16] MEDS: ASCORBIC ACID 500 MG TABLET PO SCH ×2 (09:34→21:30)
[2021-03-16] MEDS: FUROSEMIDE 40 MG TABLET PO SCH (09:34)
[2021-03-16] MEDS: GABAPENTIN 100 MG CAPSULE PO SCH ×3 (09:34→21:30)
[2021-03-16] MEDS: PANTOPRAZOLE 40 MG TABLET PO SCH (09:34)
[2021-03-16] MEDS: ASPIRIN EC 81 MG TABLET PO SCH (09:34)
[2021-03-16] MEDS: POLYETHYLENE GLYCOL POWDER 17 GM PACK PO SCH (09:35)
[2021-03-16] MEDS: ROSUVASTATIN 20 MG TABLET PO SCH (21:30)
[2021-03-16] MEDS: traZODone 50 MG TABLET PO SCH (21:30)
[2021-03-16] MEDS ORDERED: ZIPRASIDONE 20 MG/1 ML VIAL IM ONE (23:57)
[2021-03-17] MEDS: PIPERACILLIN/TAZOBACTAM 3,375 MG in SODIUM CHLORIDE 0.9% 100 ML IV SCH ×2 (00:44→09:42)
[2021-03-17] MEDS: ALBUTEROL/IPRATROPIUM 3 ML NEB RESP TX SCH ×2 (01:52→07:25)
[2021-03-17 05:37] LABS: Basophils # 0.1 10*3/uL (0.0-0.2); Basophils % 0.6 % (0.0-0.8); Eosinophils # 0.3 10*3/uL (0.0-0.87); Hematocrit 37.4 VOL% (42.0-52.0); Hemoglobin 12.4 GM/DL (14.0-18.0); Immature Granulocytes Absolute 0.11 #; Lymphocytes # 1.7 10*3/uL (1.4-4.0); Lymphocytes % 16.1 % (21.2-54.2); Mean Corpuscular HGB Conc 33.2 GM/DL (32-36); Mean Corpuscular Volume 95.2 FL (87-102); Mean Platelet Volume 10.3 FL (9.6-12.0); Monocytes % 6.4 % (1.7-12.7); Neutrophils % 72.9 % (38.7-73.9); Platelet Count 249 T/CUMM (130-400); Red Blood Count 3.93 MC/CUMM (3.8-5.5); White Blood Count 10.6 T/CUMM (4-12)
[2021-03-17 05:58] LABS: Calcium 8.7 MG/DL (8.5-10.1); Osmolality,Calculated 278.7 MOS/KG (273-304); Potassium 3.6 MMOL/L (3.5-5.1)
[2021-03-17 06:02] LABS: Anisocytosis Slight; Macrocytosis Slight; Platelet Estimate Normal
[2021-03-17 08:27] VITALS: BP 127/62
[2021-03-17] MEDS: GABAPENTIN 100 MG CAPSULE PO SCH (09:41)
[2021-03-17] MEDS: FLUCONAZOLE 100 MG TABLET PO SCH (09:41)
[2021-03-17] MEDS: ASPIRIN EC 81 MG TABLET PO SCH (09:41)
[2021-03-17] MEDS: FUROSEMIDE 40 MG TABLET PO SCH (09:41)
[2021-03-17] MEDS: PANTOPRAZOLE 40 MG TABLET PO SCH (09:41)
[2021-03-17] MEDS: lisinopriL 5 MG TABLET PO SCH (09:41)
[2021-03-17] MEDS: ISOSORBIDE MONONITRATE 20 MG TABLET PO SCH (09:41)
[2021-03-17] MEDS: ASCORBIC ACID 500 MG TABLET PO SCH (09:41)
[2021-03-17] MEDS: DOCUSATE SODIUM 100 MG CAPSULE PO SCH (09:42)
[2021-03-17] MEDS: APIXABAN 2.5 MG TABLET PO SCH (09:42)
[2021-03-17] MEDS: carvediloL 12.5 MG TABLET PO SCH (09:42)
[2021-03-17] MEDS: POLYETHYLENE GLYCOL POWDER 17 GM PACK PO SCH (10:02)
== END 2021-03-17 11:42 | disposition swing bed (61) | DRG 239 ==
LOC: N.TELEN → SUATTDRO 08:15
PROVIDERS: ADMIT Internal Medicine; ATTEND Hospitalist